=== PATIENT | male | born 1955 | race Asian ===

== ENCOUNTER 2017-01-16 15:24 | Emergency (ER) | payer OTHER ==
[2017-01-16 15:32] VITALS: BP 135/64; PULSE 87; TEMP 98.4; BMI 25.4
[2017-01-16] MEDS ORDERED: SODIUM CHLORIDE 1,000 ML IV STA (16:35)
--- NOTE | 2017-01-16 16:35 | PDOC ---
History of Present Illness - General Chief Complaint: Headache Stated Complaint: HEADACHE Time Seen by Provider: 01/16/17 15:54 History Source: Patient, Family Exam Limitations: No Limitations - History of Present Illness Initial Comments: 01/16/17 16:54 Pt. is a 61 y/o male with PMH of HTN, HLD, DM Type II, who presents to the ED c/ o dizziness and headache. Pt. states that he noticed his symptoms started on evening. He noticed every time he turned his head the room would start spinning. Pt states that he is very nauseous and unsteady when this happens. States he does not want to move his head for fear he may make the room spin. Also admits to posterior headache and neck stiffness. Denies fevers, chills, weakness, cough, shortness of breath, chest pain, numbness tingling, weakness. Past History - Travel Traveled outside of the country in the last 30 days: No Close contact w/someone who was outside of country & ill: No - Past Medical History Allergies/Adverse Reactions: Allergies Allergy/AdvReac Type Severity Reaction Status Date / Time No Known Allergies Allergy Verified 01/16/17 15:27 Home Medications: Ambulatory Orders Amlodipine Besylate 10 mg PO DAILY 01/16/17 Aspirin [ASA -] 81 mg PO DAILY 01/16/17 Carvedilol [Coreg -] 12.5 mg PO DAILY 01/16/17 Glipizide 5 mg PO DAILY 01/16/17 Losartan Potassium 25 mg PO DAILY 01/16/17 Meclizine HCl [Antivert -] 25 mg PO TID PRN #21 tablet 01/16/17 Metformin HCl [Glucophage -] 500 mg PO DAILY 01/16/17 Pravastatin Sodium [Pravachol (Nf)] 40 mg PO HS 01/16/17 Sitagliptin Phosphate [Januvia] 50 mg PO DAILY@0700 01/16/17 Cardiac Disorders: Yes (Heart Mummur) Diabetes: Yes HTN: Yes Hypercholesterolemia: Yes - Surgical History Abdominal Surgery: Yes (RT inguinal hernia repair) - Immunization History Immunization Up to Date: Yes - Suicide/Smoking/Psychosocial Hx Smoking History: Current every day smoker Number of Cigarettes Smoked Daily: 3 Information on smoking cessation initiated: No Hx Alcohol Use: No Drug/Substance Use Hx: No Substance Use Type: None Review of Systems - Review of Systems Able to Perform ROS?: Yes Comments:: 01/16/17 19:10 CONSTITUTIONAL: Absent: fever, chills, diaphoresis, generalized weakness, malaise, loss of appetite HEENT: Absent: rhinorrhea, nasal congestion, throat pain, throat swelling, difficulty swallowing, mouth swelling, ear pain, eye pain, visual Changes CARDIOVASCULAR: Absent: chest pain, loss of consciousness, palpitations, irregular heart rate, peripheral edema RESPIRATORY: Absent: cough, shortness of breath, dyspnea with exertion, orthopnea, wheezing, stridor, hemoptysis GASTROINTESTINAL: Present: Nausea Absent: abdominal pain, abdominal distension, vomiting, diarrhea, constipation, melena, hematochezia GENITOURINARY: Absent: dysuria, frequency, urgency, hesitancy, hematuria, flank pain, genital pain MUSCULOSKELETAL: Absent: myalgia, arthralgia, joint swelling SKIN: Absent: rash, itching, pallor HEMATOLOGIC/IMMUNOLOGIC: Absent: easy bleeding, easy bruising, lymphadenopathy, frequent infections ENDOCRINE: Absent: unexplained weight gain, unexplained weight loss, heat intolerance, cold intolerance NEUROLOGIC: Present headache, unsteady gait, dizziness. Absent: , focal weakness or paresthesias, seizure, mental status changes, bladder or bowel incontinence PSYCHIATRIC: Absent: anxiety, depression, suicidal or homicidal ideation, hallucinations. Is the patient limited Syriac proficient: No *Physical Exam - Vital Signs Last Vital Signs Temp Pulse Resp BP Pulse Ox 98.4 F 87 16 135/64 100 01/16/17 15:27 01/16/17 15:27 01/16/17 15:27 01/16/17 15:27 01/16/17 15:27 - Physical Exam Comments: 01/16/17 18:10 GENERAL: Well developed, well nourished. Awake and alert. No acute distress. HEENT: Normocephalic, atraumatic. PERRLA, EOMI. No conjunctival pallor. Sclera are non- icteric. Moist mucous membranes. Oropharynx is clear. Patient refuses to move head to left for a [place] test NECK: Supple. Full ROM. No JVD. Carotid pulses 2+ and symmetric, without bruits. No thyromegaly. No lymphadenopathy. CARDIOVASCULAR: Regular rate and rhythm. No murmurs, rubs, or gallops. Distal pulses are 2+ and symmetric. PULMONARY: No evidence of respiratory distress. Lungs clear to auscultation bilaterally. No wheezing, rales or rhonchi. ABDOMINAL: Soft. Non-tender. Non-distended. No rebound or guarding. No organomegaly. Normoactive bowel sounds. MUSCULOSKELETAL Normal range of motion at all joints. No bony deformities or tenderness. No CVA tenderness. EXTREMITIES: No cyanosis. No clubbing. No edema. No calf tenderness. SKIN: Warm and dry. Normal capillary refill. No rashes. No jaundice. NEUROLOGICAL: Alert, awake, appropriate. Cranial nerves 2-12 intact. No deficits to light touch and temperature in face, upper extremities and lower extremities. No motor deficits in the in face, upper extremities and lower extremities. Normoreflexic in the upper and lower extremities. Normal speech. Toes are down- going bilaterally. Gait is unsteady. Rapid alternating motions intact, no dysmetria, or dysarthria. PSYCHIATRIC: Cooperative. Good eye contact. Appropriate mood and affect. ED Treatment Course - LABORATORY CBC & Chemistry Diagram: 01/16/17 17:20 01/16/17 20:15 Medical Decision Making - Medical Decision Making 01/16/17 17:05 Pt. is a 61 y/o male with PMH of HTN, HLD, DM Type II who presents to the ED c/ o dizziness and headache. Most probable a peripheral vertigo based on dizziness with head movement. However, given headache cannot r/o cerebellar issue even with negative cerebellar testing. ACS less likely 1. CBC, CMP, Trop, PT/INR 2. MRI, EKG 3. IVF, meclazine, ofirmev 4. Re-evaluate 01/16/17 18:58 Troponin is negative at this time, WBC slightly elevated at 11.3. Other labs are within normal limits. Patient states that he is feeling much better after the meclizine. MRI is available tonight and patient will have the testing done now. EKG showed a normal sinus rhythm with no acute ST-T wave changes and normal intervals. Sign out given to Jolly Olivier NP for further evaluation. *DC/Admit/Observation/Transfer Diagnosis at time of Disposition: Vertigo - Discharge Dispostion Disposition: HOME - Prescriptions Prescriptions: Meclizine HCl [Antivert -] 25 mg PO TID PRN #21 tablet PRN Reason: Vertigo - Referrals Referrals: Yoselin Hardin MD [Primary Care Provider] - Call tomorrow Lincoln,Jim Damico MD [Staff Physician] - - Patient Instructions Printed Discharge Instructions: DI for Vertigo Additional Instructions: drink plenty of fluids take Meclizine as prescribed. follow up with your doctor as soon as possible. follow up with ENT as soon as possible. return to the ED if symptoms worsen. - Post Discharge Activity Forms/Work/School Notes: Back to Work
[2017-01-16] MEDS ORDERED: MECLIZINE HCL 25 MG TABLET (FP) PO ONE (16:36)
[2017-01-16] MEDS ORDERED: ACETAMINOPHEN 1000 MG/100 ML VIAL (NON FORMULARY) IVPB ONE (16:37)
[2017-01-16] MEDS ORDERED: ACETAMINOPHEN INJECTION 100 ML IVPB ONE (17:08)
[2017-01-16] MEDS ORDERED: MECLIZINE HCL 25 MG TABLET (FP) ONE (17:08)
[2017-01-16 17:26] LABS: BASOPHIL 0.8 % (0-2.0); EOSINOPHIL 2.7 % (0-4.5); MCH 30.5 pg (25.7-33.7); MCHC 33.9 g/dl (32.0-35.9); MEAN CELL VOLUME 89.8 fl (80-96); MEAN PLT VOLUME 9.2 fl (7.5-11.1); NEUTROPHILS 58.1 % (42.8-82.8); PLATELET COUNT 248 K/MM3 (134-434); RDW 13.5 % (11.9-15.9); WHITE BLOOD COUNT 11.1 K/mm3 (4.0-10.0)
[2017-01-16 17:41] LABS: INR 0.97 (0.82-1.09); PROTHROMBIN TIME (PATIENT) 10.7 SEC (9.98-11.88)
[2017-01-16] MEDS ORDERED: METOCLOPRAMIDE HCL INJECTION 10 MG/2 ML VIAL IVPB ONE (20:09)
--- NOTE | 2017-01-16 20:12 | PDOC ---
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 NML intact, Alert, Normal Mood/Affect Heart Score/ECG Review - ECG Intrepretation Rhythm: Regular Rhythm Comment:: 01/16/17 21:32 76: NSR ED Treatment Course - LABORATORY CBC & Chemistry Diagram: 01/16/17 17:20 01/16/17 20:15 - ADDITIONAL ORDERS Additional order review: Laboratory Results 01/16/17 01/16/17 01/16/17 17:20 17:20 17:20 PT with INR 10.70 INR 0.97 Sodium Cancelled Potassium Cancelled Chloride Cancelled Carbon Dioxide Cancelled Anion Gap Cancelled BUN Cancelled Creatinine Cancelled Creat Clearance w eGFR Cancelled Random Glucose Cancelled Calcium Cancelled Total Bilirubin Cancelled AST Cancelled ALT Cancelled Alkaline Phosphatase Cancelled Creatine Kinase Cancelled Troponin I Cancelled Total Protein Cancelled Albumin Cancelled 01/16/17 17:20 RBC 4.28 MCV 89.8 MCHC 33.9 RDW 13.5 MPV 9.2 Neutrophils % 58.1 Lymphocytes % 32.1 Monocytes % 6.3 Eosinophils % 2.7 Basophils % 0.8 - Medications Given in the ED: ED Medications Discontinued Medications Generic Name Dose Route Start Last Admin Trade Name Freq PRN Reason Stop Dose Admin Acetaminophen 1,000 mg 01/16/17 16:37 01/16/17 17:24 Ofirmev Injection - IVPB 01/16/17 16:38 1,000 mg ONCE ONE Administration Meclizine HCl 50 mg 01/16/17 16:36 01/16/17 17:24 Antivert - PO 01/16/17 16:37 50 mg ONCE ONE Administration Medical Decision Making - Medical Decision Making 01/16/17 20:08 patient returned from MRI: Reports slight relief in dizziness, reports nausea. will give Benadryl and Reglan and reevaluate. MRI results pending/. 01/16/17 20:39 MRI results WNL. incidental finding of arachnoid cyst unchanged from previous CT scan also noted. will d/c patient home to follow up with pmd/ ent. *DC/Admit/Observation/Transfer Diagnosis at time of Disposition: Vertigo - Discharge Dispostion Disposition: HOME - Prescriptions Prescriptions: Meclizine HCl [Antivert -] 25 mg PO TID PRN #21 tablet PRN Reason: Vertigo - Referrals Referrals: Yoselin Hardin MD [Primary Care Provider] - Call tomorrow Jim Stark MD [Staff Physician] - - Patient Instructions Printed Discharge Instructions: DI for Vertigo Additional Instructions: drink plenty of fluids take Meclizine as prescribed. follow up with your doctor as soon as possible. follow up with ENT as soon as possible. return to the ED if symptoms worsen. - Post Discharge Activity Forms/Work/School Notes: Back to Work
[2017-01-16] MEDS ORDERED: METOCLOPRAMIDE HCL INJECTION 10 MG/2 ML VIAL ONE (20:23)
[2017-01-16 20:57] LABS: ALBUMIN 3.8 g/dl (3.4-5.0); ANION GAP 7 (8-16); CALCIUM 8.9 mg/dL (8.5-10.1); CO2 25 mmol/L (21-32); CREATININE 1.1 mg/dL (0.7-1.3); GLUCOSE,RANDOM 105 mg/dL (74-106); SGOT/AST 16 U/L (15-37); SGPT/ALT 33 U/L (12-78)
[2017-01-16 20:59] LABS: ALK PHOS 85 U/L (45-117); BILIRUBIN,TOTAL 0.7 mg/dL (0.2-1.0); TOT PROT 7.2 g/dl (6.4-8.2)
[2017-01-16 21:02] LABS: CPK 80 IU/L (39-308); TROPONIN I < 0.02 ng/ml (0.00-0.05)
--- NOTE | 2017-01-17 09:36 | EKG ---
Test Reason : Blood Pressure : / mmHG Vent. Rate : 076 BPM Atrial Rate : 076 BPM P-R Int : 154 ms QRS Dur : 088 ms QT Int : 368 ms P-R-T Axes : 061 020 056 degrees QTc Int : 414 ms NORMAL SINUS RHYTHM POSSIBLE LEFT ATRIAL ENLARGEMENT BORDERLINE ECG WHEN COMPARED WITH ECG OF 21-OCT-2008 10:11, NO SIGNIFICANT CHANGE WAS FOUND Confirmed by SAADIA WALLIS MD ([id number]) on 01/17/2017 9:36:28 AM Referred By: Confirmed By:SAADIA WALLIS MD
== END 2017-01-16 21:51 | disposition home or self-care (01) ==
LOC: JER 15:24
PROC: 3E0337Z Introduction of Electrolytic and Water Balance Substance into Peripheral Vein, Percutaneous Approach (ICD-10-PCS; principal; 2017-01-16)
PROC: 3E033NZ Introduction of Analgesics, Hypnotics, Sedatives into Peripheral Vein, Percutaneous Approach (ICD-10-PCS; 2017-01-16)
PROC: 3E033GC Introduction of Other Therapeutic Substance into Peripheral Vein, Percutaneous Approach (ICD-10-PCS; 2017-01-16)
PROC: 3E033GC Introduction of Other Therapeutic Substance into Peripheral Vein, Percutaneous Approach (ICD-10-PCS; 2017-01-16)
DX: R42 Dizziness and giddiness (principal); I10 Essential (primary) hypertension; E11.9 Type 2 diabetes mellitus without complications; Z79.84 Long term (current) use of oral hypoglycemic drugs; E78.00 Pure hypercholesterolemia, unspecified
CPT/HCPCS: 36415; 70551-TC; 80053; 84484; 85025; 85610; 93005; 93010; 99284-25